=== PATIENT | female | born 1985 | race Caucasian/White ===

== ENCOUNTER 2019-04-01 11:32 | Emergency (ER) | payer OTHER ==
[~2019-04-01] VITALS: Ht 170.2 cm; Wt 90.9 kg
[2019-04-01 13:42] VITALS: BP 128/98
[2019-04-01] MEDS ORDERED: CLIN150C14 PO (13:51)
--- NOTE | 2019-04-01 13:52 | PHYS DOC ---
Past History Past Medical History: No Pertinent History Past Surgical History: No Surgical History Alcohol Use: Occasionally Drug Use: None Adult General Chief Complaint Chief Complaint: FINGER INJURY [facility] Patient is a 34-year-old female presents secondary to left thumb redness and swelling. She has been on cephalexin for the past 48 hours from urgent care for paronychia. She has not noticed improvement. There has been no fever or chills reported systemically. No drainage and no fluctuant area of the thumb. No known injury. No history of MRSA or cellulitis. Review of Systems Review of Systems All other ROS is negative unless otherwise stated in HPI Allergies Allergies Allergies Coded Allergies Type Severity Reaction Last Updated Verified Sulfa (Sulfonamide Antibiotics) Allergy Unknown Unknown 07/16/15 Yes Physical Exam Physical Exam See above Constitutional: Well developed, well nourished, no acute distress, non-toxic ap pearance. [] HENT: Normocephalic, atraumatic, bilateral external ears normal, oropharynx moist, no oral exudates, nose normal. [] Eyes: PERRLA, EOMI, conjunctiva normal, no discharge. [] Neck: Normal range of motion, no tenderness, supple, no stridor. [] Cardiovascular:Heart rate regular rhythm, no murmur [] Lungs & Thorax: Bilateral breath sounds clear to auscultation [] Abdomen: Bowel sounds normal, soft, no tenderness, no masses, no pulsatile masses. [] Skin: Warm, dry. Evidence of paronychial infection on the left thumb medial aspect with moderate swelling and no fluctuance noted. Back: No tenderness, no CVA tenderness. [] Extremities: No tenderness, no cyanosis, no clubbing, ROM intact, no edema. [] Neurologic: Alert and oriented X 3, normal motor function, normal sensory function, no focal deficits noted. [] Psychologic: Affect normal, judgement normal, mood normal. [] EKG EKG [] Radiology/Procedures Radiology/Procedures [] Impressions: See above Course & Med Decision Making Course & Med Decision Making Patient seen for paronychia that is not responding cephalexin. She has an allergy to Bactrim so will start her on clindamycin 4 times daily for 10 days. S he was instructed to use ibuprofen and ice to help with inflammation and return in 48 hours if her symptoms are not improving. Patient voices understanding. Dragon Disclaimer Dragon Disclaimer This electronic medical record was generated, in whole or in part, using a voice recognition dictation system. Departure Departure: Impression: Primary Impression: Paronychia of left thumb Disposition: HOME, SELF-CARE Condition: STABLE Referrals: [facility] (PCP) Patient Instructions: Paronychia Additional Instructions: Take-home antibiotics until completed. Return to the ED in 48 hours if your symptoms continue to worsen. Scripts Clindamycin Hcl (CLINDAMYCIN HCL) 150 Mg Capsule 1 CAP PO QID for paronychia, #40 CAP 0 Refills Prov: CHAPIS GONZALEZ DO 04/01/19 CHAPIS GONZAELZ DO Apr 01, 2019 13:52
== END 2019-04-01 13:54 | disposition home or self-care (01) ==
LOC: ER 11:32
DX: L03.012 Cellulitis of left finger (principal); Z88.2 Allergy status to sulfonamides
CPT/HCPCS: 99283